=== PATIENT | male | born 1980 | race American Indian/Alaskan Native ===

== ENCOUNTER 2020-04-29 13:47 | Emergency (ER) | payer SELFPAY ==
[2020-04-29 13:54] VITALS: BP 105/70
--- NOTE | 2020-04-29 14:09 | Emergency Department Report ---
Blank Doc - Documentation Documentation: 40-year-old male that presents with n/v and subjective fever. This initial assessment/diagnostic orders/clinical plan/treatment(s) is/are subject to change based on patient's health status, clinical progression and re- assessment by fellow clinical providers in the ED. Further treatment and workup at subsequent clinical providers discretion. Patient/guardians urged not to elope from the ED as their condition may be serious if not clinically assessed and managed. Initial orders include: 1- Patient sent to [facility] for further evaluation and treatment 2- labs 3- UA
[2020-04-29 16:11] LABS: Hematocrit 43.1 % (35.5-45.6); Hemoglobin 14.7 gm/dl (11.8-15.2); Mean Corpuscular HGB Conc 34 % (32-34); Mean Corpuscular Volume 86 fl (84-94); Platelet Count 121 K/mm3 (140-440); Red Blood Count 5.02 M/mm3 (3.65-5.03); Red Cell Distribution Width 13.3 % (13.2-15.2)
[2020-04-29 16:43] LABS: Alanine Aminotransferase 16 units/L (7-56); Albumin 4.2 g/dL (3.9-5); BUN/Creatinine Ratio 10; Blood Urea Nitrogen 13 mg/dL (9-20); Calcium 9.5 mg/dL (8.4-10.2); Hemolysis Index 10
[2020-04-29 17:09] LABS: Anisocytosis RARE; Total Cells Counted 100
[2020-04-29] MEDS ORDERED: ONDANSETRON 4 MG/2 ML INJ IV ONE (17:23)
[2020-04-29] MEDS ORDERED: SODIUM CHLORIDE 0.9% 1000 ML 1,000 ML IV ONE (17:23)
[2020-04-29] MEDS ORDERED: DICYCLOMINE 20 MG/2 ML INJ IM ONE (17:23)
[2020-04-29 17:44] LABS: Bilirubin,Urine NEG (Negative); Blood,Urine NEG (Negative); Color,Urine Yellow (Yellow); Mucus,Urine FEW /HPF
--- NOTE | 2020-04-29 17:48 | XRay Report ---
ABDOMEN SUPINE INDICATION / CLINICAL INFORMATION: abd pain. COMPARISON: None available. FINDINGS: Bowel gas pattern is nonspecific, not indicative of obstruction. No gross abnormal mass or calcificat ion. Signer Name: Anival Andersen MD Signed: 04/29/2020 5:44 PM Workstation Name: [id number]
--- NOTE | 2020-04-29 17:52 | Emergency Department Report ---
ED Abdominal Pain HPI - General Chief Complaint: Nausea/Vomiting/Diarrhea Stated Complaint: FLU SYMPTOMS/VOMITTING Time Seen by Provider: 04/29/20 14:08 Source: patient Mode of arrival: Ambulatory Limitations: No Limitations - History of Present Illness Initial Comments: Pt is a 40-year-old male who presents for abd pain and n/v x 2 days. Pain is described as 5/10 aching to LUQ, pain is relieved by nothing, pain is exacerbated by eating, pt state intermitent fever and chills. no sob no cough, no constipation. pt with does endorse diarrhea for past day. MD Complaint: abdominal pain - Related Data Previous Rx's Medication Instructions Recorded Last Taken Type Dicyclomine [Bentyl] 10 mg PO QID #12 capsule 04/29/20 Unknown Rx Ondansetron [Zofran Odt] 4 mg PO Q8HR PRN #12 tab.rapdis 04/29/20 Unknown Rx Allergies Allergy/AdvReac Type Severity Reaction Status Date / Time No Known Allergies Allergy Unverified 04/29/20 13:52 ED Review of Systems ROS: Stated complaint: FLU SYMPTOMS/VOMITTING Other details as noted in HPI Constitutional: denies: chills, fever Eyes: denies: eye pain, eye discharge, vision change ENT: denies: ear pain, throat pain Respiratory: denies: cough, shortness of breath, wheezing Cardiovascular: denies: chest pain, palpitations Endocrine: no symptoms reported Gastrointestinal: abdominal pain, nausea, vomiting, diarrhea. denies: melena Genitourinary: denies: urgency, dysuria Musculoskeletal: denies: back pain, joint swelling, arthralgia Skin: denies: rash, lesions Neurological: denies: headache, weakness, paresthesias, vertigo Psychiatric: as per HPI Hematological/Lymphatic: denies: easy bleeding, easy bruising ED Past Medical Hx - Past Medical History Previous Medical History?: No - Surgical History Past Surgical History?: No - Medications Home Medications: Home Medications Medication Instructions Recorded Confirmed Last Taken Type Dicyclomine [Bentyl] 10 mg PO QID #12 capsule 04/29/20 Unknown Rx Ondansetron [Zofran Odt] 4 mg PO Q8HR PRN #12 tab.rapdis 04/29/20 Unknown Rx ED Physical Exam - General Limitations: No Limitations General appearance: alert, in no apparent distress - Head Head exam: Present: atraumatic, normocephalic - Eye Eye exam: Present: normal appearance, EOMI Pupils: Present: normal accommodation - ENT ENT exam: Present: mucous membranes moist - Neck Neck exam: Present: normal inspection - Respiratory Respiratory exam: Present: normal lung sounds bilaterally. Absent: respiratory distress, wheezes, stridor, chest wall tenderness - Cardiovascular Cardiovascular Exam: Present: regular rate, normal rhythm, normal heart sounds. Absent: systolic murmur, diastolic murmur, rubs, gallop - GI/Abdominal GI/Abdominal exam: Present: soft, tenderness (LUQ mild tenderness ), normal bowel sounds. Absent: distended, guarding, rebound, rigid, bruit, hernia - Rectal Rectal exam: Present: deferred - Extremities Exam Extremities exam: Present: normal inspection, full ROM. Absent: tenderness - Back Exam Back exam: Present: normal inspection, full ROM. Absent: tenderness, CVA tenderness (R), CVA tenderness (L), vertebral tenderness - Neurological Exam Neurological exam: Present: alert, oriented X3, CN II-XII intact, normal gait - Psychiatric Psychiatric exam: Present: normal affect - Skin Skin exam: Present: warm, dry, intact, normal color. Absent: rash ED Course Vital Signs 04/29/20 13:53 Temperature 98.8 F Pulse Rate 102 H Respiratory 20 Rate Blood Pressure 105/70 O2 Sat by Pulse 94 Oximetry ED Medical Decision Making - Lab Data Result diagrams: 04/29/20 14:48 04/29/20 14:48 - Radiology Data Radiology results: report reviewed, image reviewed Findings Reporting MD: Anival Andersen Dictation Time: April 29, 2020 16:44 Transcripti onist: Not available Pattern Drafter Date: ABDOMEN SUPINE INDICATION / CLINICAL INFORMATION: abd pain. COMPARISON: None available. FINDINGS: Bowel gas pattern is nonspecific, not indicative of obstruction. No gross abnormal mass or calcification. Signer Name: Anival Andersen MD Signed: 04/29/2020 4:44 PM Workstation Name: [id number] - Medical Decision Making KUB is normal nonspecific gas pattern, labs normal, symptoms are resolved with medications given in ED. Is likely gastroparesis related to fish product. Patient will be DC'd home in stable condition at this time as he is tolerating p.o. intake without symptom. We will continue to hydrate as directed. Follow- up with primary care doctor in 2 to 3 days. Patient verbalizes agreement and understanding with discharge plan. Critical care attestation.: If time is entered above; I have spent that time in minutes in the direct care of this critically ill patient, excluding procedure time. ED Disposition Clinical Impression: Nausea and vomiting Qualifiers: Vomiting type: unspecified Vomiting Intractability: non-intractable Qualified Code(s): R11.2 - Nausea with vomiting, unspecified Disposition: TO HOME OR SELFCARE Is pt being admited?: No Does the pt Need Aspirin: No Condition: Stable Instructions: Nausea and Vomiting, Adult, Food Poisoning, [id number] Prescriptions: Dicyclomine [Bentyl] 10 mg PO QID #12 capsule Ondansetron [Zofran Odt] 4 mg PO Q8HR PRN #12 tab.rapdis PRN Reason: Nausea Referrals: PRIMARY CAREMD [Primary Care Provider] - 3-5 Days MINDY MIMS MD [Staff Physician] - 3-5 Days Forms: Work/School Release Form(ED) Time of Disposition: 19:43
== END 2020-04-29 20:40 | disposition home or self-care (01) ==
LOC: ED 13:47
DX: R11.2 Nausea with vomiting, unspecified (principal); R10.12 Left upper quadrant pain; Z79.899 Other long term (current) drug therapy
CPT/HCPCS: 36415; 74018; 80053; 81001; 83690; 85007; 85025; 96361; 96372; 96374; 99284; J0500; J2405; J7030